=== PATIENT | male | born 1995 | race African-American/Black ===

== ENCOUNTER 2017-02-05 17:58 | Emergency (ER) | payer OTHER ==
[~2017-02-05 17:58] MED LIST: ACETAMINOPHEN PO; CLARITIN10 M2 PO; HUMALOG100 U/ML SUBQ; LANTUS100 U/ML SUBQ; VENTOLIN5 MG/ML IH
[2017-02-05 18:04] LABS: BASOPHIL% 0.3 % (0-2.5); HEMATOCRIT 45.2 % (38.0-50.0); HEMOGLOBIN 15.1 gm/dL (13.0-16.0); LYMPHOCYTE# 0.6 X10e3 (1.0-3.5); MEAN CELL VOLUME 77.8 FL (83-96); MEAN CORPUSCULAR HGB CONC 33.3 g/dL (30-36); MEAN PLATELET VOLUME 9.1 FL (6.5-11.5); MONOCYTE# 0.3 X10e3 (0-1.0); MONOCYTE% 4.4 % (3.0-12.0); NEUTROPHIL# 5.9 X10e3 (1.5-7.1); NEUTROPHIL% 86.3 % (40-75); PLATELET COUNT 235 X10e3 (140-420); RED CELL DISTRIBUTION WIDTH 13.7 % (11.0-15.5); WHITE BLOOD COUNT 6.8 X10e3 (4.0-10.5)
[2017-02-05 18:05] LABS: DIFF IND NO
[2017-02-05 18:22] LABS: URINE SOURCE CLEAN CATCH
[2017-02-05 18:23] LABS: INFLUENZA A NEG (NEG); INFLUENZA B NEG (NEG)
[2017-02-05 18:30] LABS: URINE APPEARANCE CLEAR; URINE BILIRUBIN NEG (NEG); URINE BLOOD NEG (NEG); URINE COLOR YELLOW; URINE GLUCOSE 500 MG/DL (NEG); URINE KETONE 1+ (NEG); URINE LEUKOCYTE ESTERASE NEG (NEG); URINE NITRATE NEG (NEG); URINE PROTEIN 2+ (NEG); URINE SPECIFIC GRAVITY 1.032 (1.003-1.035)
[2017-02-05 18:32] LABS: ALBUMIN SERUM 4.3 g/dL (3.5-5.0); ALKALINE PHOSPHATASE 69 U/L (32-92); ALT (SGPT) 21 U/L (10-40); AST (SGOT) 32 U/L (10-42); BETA HYDROXYBUTYRATE 0.39 MMOL/L (0.02-0.27); BILIRUBIN, DIRECT 0.1 mg/dL (0.0-0.2); BILIRUBIN,INDIRECT 0.5 mg/dL (0.0-0.9); BILIRUBIN,TOTAL 0.6 mg/dL (0.2-2.0); BLOOD UREA NITROGEN 11 mg/dL (9-23); BUN/CREATININE RATIO 12.22; CALCIUM SERUM 9.3 mg/dL (8.4-10.2); CARBON DIOXIDE 25 mmol/L (22-31); CHLORIDE 101 mmol/L (100-111); CREATININE SERUM 0.9 mg/dL (0.6-1.4); GLOM FILT RATE Estimated ABOVE60 mL/min (>60); GLUCOSE FASTING 214 mg/dL (70-110); POTASSIUM 3.7 mmol/L (3.5-5.1); PROTEIN TOTAL SERUM 7.9 g/dL (6.0-8.3); SODIUM 134 mmol/L (135-145)
[2017-02-05 18:33] LABS: URINE BACTERIA AUWI NEG (NEGATIVE); URINE SQUAMOUS EPITHELIAL CELL MOD /[HPF]; UWBCS1 AUWI 0-2 (0-5)
[2017-02-05 18:34] LABS: CULTURE INDICATED? NO
== END 2017-02-05 19:46 | disposition home or self-care (01) ==
LOC: CED 17:58
PROVIDERS: Emergency Medicine
DX: E10.65 Type 1 diabetes mellitus with hyperglycemia (principal)
CPT/HCPCS: 36415; 80048; 80076; 81003; 82010; 82947; 85025; 87804; 96361; 96374; 96375; 99284; J2405; J2550

== ENCOUNTER 2017-02-07 03:05 | Inpatient (IN) | payer OTHER ==
--- NOTE | ~2017-02-07 | NM19 ---
[facility] A Service of [facility] RADIOLOGY TEXT RESULTS PATIENT: LANEY HANSON LOCATION: A : [birth year] UNIT #: [id number] AGE: [address]: Alba Villafuerte MD SEX: M ORDER DR: [id number] [facility] [address] [facility] [address] [place], [place] [address] [id number] I MR#: [id number] Acc #: [id number] NAME: LANEY HANSON : 1995 SEX: M STUDY DATE/TIME: 02/08/2017 12:45 UNIT: [facility] ROOM: [facility] STUDY DESCRIPTION: NM Gastric Emptying Study Attending Physician: Alba Villafuerte M.D. Ordering Physician: Ramesh Mulligan M.D. Primary Care Physician: Primary Care Physician No MEDICAL IMAGING REPORT This report is preliminary unless electronic signature is present EXAM Gastric emptying scan, 02/08/2017 HISTORY Nausea and vomiting all day, alternating diarrhea and constipation, epigastric abdominal pain, symptoms began 4 days ago. FINDINGS The patient ingested 534 microcuries of technetium 99m tagged sulfur colloid in eggs. Images of the upper abdomen were obtained for 105 minutes. The gastric half-emptying time was calculated to be 96 minutes (normal is between 65 and 90 minutes). IMPRESSION Delayed gastric half-emptying time of 96 minutes. Dictated by... Carson Call M.D. THIS IS AN ELECTRONICALLY VERIFIED REPORT Carson Call M.D. at 02/09/2017 7:56 AM Marjorie TD: 02/09/2017 00:39 JOB #: [id number] MEDICAL IMAGING REPORT COPY
--- NOTE | ~2017-02-07 | HP ---
Unit #: [id number] #: [id number] Patient: LANEY COWART [id number] [address] [place], [place] [address] [id number] MR#: [id number] NAME: LANEY COWART ROOM: 09960 Age: 21 Sex: M Admission Date: 02/07/2017 : 1995 Attending Physician: Julia Herbert M.D. Primary Care Physician: No Primary Care Physician HISTORY AND PHYSICAL PRIMARY CARE PROVIDER Dr. Bradley CHIEF COMPLAINT Nausea, vomiting. HISTORY OF PRESENT ILLNESS Mr. Cowart is a nice 21-year-old -[place]an male with a history of diabetes who presents to the emergency department with nausea and vomiting. The patient states he began having abdominal prior to onset of nausea and vomiting approximately two to three days ago. The pain was present in the middle portion of the abdomen, both epigastric, umbilical and in the lower abdomen but didn't extend to the out portion of the quadrants. It is described as achy. The patient states with his first episode of emesis he noticed some bright red blood and since then has had some dark coffee ground type emesis. He denies any baseline heartburn and denies any similar symptoms in the past. This was associated with the onset of diarrhea but he did not look to see if he had any melena or hematochezia. He was seen yesterday in the emergency department, was not in DKA, had normal white blood cell count, was not febrile and sent home. Flu swab at that time was negative and urinalysis revealed only mild ketones. However, patient went home, still was unable to eat. Diarrhea has resolved but he is still having nausea and vomiting. Upon presentation here today, patient has mild DKA with an anion gap of 14 and a glucose of 232. He stated his sugars at home have been running in the 150 to 250 range. He does endorse some polydipsia and polyuria and some unquantified weight loss over the last two to three days. He is being admitted for mild DKA and hematemesis. PAST MEDICAL HISTORY 1. Diabetes mellitus type 1 diagnosed at age 3 to 4. Again, patient states his sugars at home have been running 150 to 250. He does have a prior history of DKA with last admission here in 2014. 2. Oppositional disorder per review of records in 2008 per [facility]. MEDICATIONS Home medications include: 1. Lantus 44 units at bedtime. 2. Humalog one unit for each 5 g of carbohydrate with meals. PAST SURGICAL HISTORY Negative. Unit #: [id number] #: [id number] Patient: LANEY COWART ALLERGIES No known drug allergies. FAMILY HISTORY Reportedly negative. SOCIAL HISTORY Patient does admit to marijuana use. He also smokes about two to three Black and Mild per day and has done so for the last five to ten years. REVIEW OF SYSTEMS He is having abdominal pain. Still having nausea with perhaps some coffee ground emesis. Denies any other chest pain. Denies any sore throat, denies any fevers, denies an sick contacts. He denies any difficulty urinating, dysuria or obvious hematuria. He denies any significant joint pain. Otherwise, ten point review of systems was reviewed and is negative. PHYSICAL EXAMINATION VITAL SIGNS: Temperature 97.7, blood pressure 141/86, pulse rate 47, respiratory rate 22. Oxygen saturation is normal on room air. GENERAL: The patient is awake, he is alert. He is oriented x3 but appears ill and uncomfortable. HEENT: Pupils equally round, reactive to light bilaterally. Anicteric sclerae. No conjunctival pallor. Oropharynx with dry mucous membranes. No erythema or exudate. NECK: Supple. No lymphadenopathy, no thyromegaly, no JVD. HEART: Regular rate and rhythm, currently without murmur, rub or gallop. LUNGS: Clear to auscultation bilaterally without wheezes, rhonchi or crackles. ABDOMEN: Currently soft. It is nontender, it is not distended. Positive bowel sounds. No appreciable hepatosplenomegaly. EXTREMITIES: No cyanosis, clubbing, or edema. Pedal pulses 2/4. SKIN: Warm, moist. It is without rash. Multiple tattoos noted over the chest and upper arms bilaterally. MUSCULOSKELETAL: No significant joint abnormalities noted. No erythema or malformation of joints. NEUROLOGICAL: Cranial nerves II-XII intact. Sensation, strength and deep tendon reflexes are grossly normal. PSYCHIATRIC: No suicidal or homicidal ideation. DIAGNOSTIC STUDIES LABORATORY: Lab work done earlier today reveals a sodium of 135, potassium 3.5, chloride 96, bicarb 25, BUN 12, creatinine 1.2, glucose of 232. Calculated anion gap mildly elevated at 14. LFTs are normal. Lipase is normal at 15. Beta hydroxybutyrate is very mildly elevated at 1.97. Alcohol is less than 5. CBC reveals a white blood cell count of 6.9, hemoglobin 15.9, platelet count of 261,000 with an MCV of 78. Venous blood gas reveals a pH of 7.52, pCO2 of 32, pO2 of 41. Urinalysis reveals 1+ protime, greater than 100 of glucose, 1+ blood and 5-10 RBCs. Unit #: [id number] #: [id number] Patient: LANEY COWART Urine drug screen is positive for marijuana. CARDIOVASCULAR: EKG done in the emergency department reveals normal sinus rhythm. There are no ST or T wave abnormalities. IMAGING: CT scan of the abdomen and pelvis was done given some microscopic hematuria and it reveals only free fluid in the pelvis. It is otherwise negative. ASSESSMENT 1. Mild diabetic ketoacidosis. 2. Hematemesis with stable hemoglobin. 3. Acute kidney injury, prerenal. 4. Microcytosis, question iron deficiency versus thalassemia versus other. 5. Microscopic hematuria. 6. Tobaccoism. 7. Marijuana use. PLAN 1. will admit patient to inpatient status on telemetry floor. 2. I am going to give 4 units of NovoLog subcutaneously now, otherwise obtain Accu-Cheks a.c. and h.s. and place patient on diabetic clear diet for now. I am going to decrease dose of Levemir to 20 units at bedtime for now until intake and diet have improved/advanced. 3. I am going to consult GI in regards to patient's hematemesis, place him on Protonix 40 mg IV b.i.d. and continue to follow serial hemoglobin. 4. Will recheck renal function later today with repeat BMP. I anticipate creatinine will improve. 5. Will check iron and TIBC level in regards to patient's microcytosis. 6. Can follow up microscopic hematuria as an outpatient. 7. DVT prophylaxis with SCDs. Dictated by Julia Herbert M.D. MARIA LUISA/johnny TD: 02/07/2017 07:27 JOB #: [id number] HISTORY AND PHYSICAL X Julia Herbert MD X HISTORY AND PHYSICAL
--- NOTE | ~2017-02-07 | CT4 ---
[facility] A Service of [facility] RADIOLOGY TEXT RESULTS PATIENT: LANEY HANSON LOCATION: [facility] 579-01 : [birth year] UNIT #: [id number] AGE: [address]: Alba Villafuerte MD SEX: M ORDER DR: [id number] [place] 0[address] [facility]. [place], [place] [address] [id number] I MR#: [id number] Acc #: [id number] NAME: LANEY HANSON : 1995 SEX: M STUDY DATE/TIME: 02/07/2017 4:13 UNIT: [facility] ROOM: 64013 STUDY DESCRIPTION: CT Abd and Pelv Wo Cont Attending Physician: Alba Villafuerte M.D. Ordering Physician: Daniella Dinh M.D. Primary Care Physician: Primary Care Physician No MEDICAL IMAGING REPORT This report is preliminary unless electronic signature is present EXAM CT abdomen and pelvis without contrast 02/07/2017 HISTORY 21-year-old male with complaints of nausea, vomiting and abdominal pain greatest in the epigastric region for 1 day. Diabetes. COMPARISON Acute abdominal series 04/14/2015. No prior CT abdomen and pelvis at this institution for comparison. TECHNIQUE This CT examination was performed with one or more of the following radiation dose reduction techniques: automatic exposure control, adjustment of mA and/or kV according to patient size, and iterative reconstruction. PROCEDURE 3 mm noncontrast axial images through the abdomen and pelvis. Enteric contrast was not administered. Sagittal and coronal reformatted images were obtained. FINDINGS ABDOMEN: The lung bases are free of consolidation. Noncontrast appearance of the liver, gallbladder, spleen, pancreas, adrenals and kidneys within normal limits. No urinary tract stone or hydronephrosis is seen. Appendix not visualized. Limited evaluation of bowel due to the paucity of intraabdominal fat, and the lack of IV and oral contrast. Bowel appears grossly unremarkable. PELVIS: Trace pelvic free fluid. Presumed phleboliths bilaterally in the pelvis. Urinary bladder, rectum normal. [facility] A Service of [facility] RADIOLOGY TEXT RESULTS PATIENT: LANEY HANSON LOCATION: [facility] 579-01 : [birth year] UNIT #: [id number] AGE: [address]: Alba Villafuerte MD SEX: M ORDER DR: No acute osseous abnormalities are seen. IMPRESSION 1. Trace pelvic free fluid is present. Otherwise, no acute findings are identified. Study is significantly limited due to lack of IV and oral contrast. 2. Appendix not visualized. Dictated by... Minnie Jimenez M.D. THIS IS AN ELECTRONICALLY VERIFIED REPORT Minnie Jimenez M.D. at 02/07/2017 10:02 PM Mini/bronwyn TD: 02/07/2017 08:31 JOB #: [id number] MEDICAL IMAGING REPORT COPY
--- NOTE | ~2017-02-07 | CR72 ---
[facility] A Service of [facility] RADIOLOGY TEXT RESULTS PATIENT: LANEY HANSON LOCATION: [facility] : [birth year] UNIT #: [id number] AGE: [address]: Alba Villafuerte MD SEX: M ORDER DR: [id number] [facility] [address]. [place], [place] [address] [id number] I MR#: [id number] Acc #: [id number] NAME: LANEY HANSON : 1995 SEX: M STUDY DATE/TIME: 02/07/2017 3:05 UNIT: [facility] ROOM: 42795 STUDY DESCRIPTION: CR Chest Single View Portable Attending Physician: Alba Villafuerte M.D. Ordering Physician: Daniella Dinh M.D. Primary Care Physician: Primary Care Physician No MEDICAL IMAGING REPORT This report is preliminary unless electronic signature is present EXAM AP portable chest 02/07/2017 03:05 HISTORY Epigastric pain with nausea and vomiting for 2 days. Diabetes. Smoking history. COMPARISON AP portable chest 04/13/2015 FINDINGS A single AP portable view of the chest shows both lungs to be clear. The heart is normal in size. The mediastinal contour is normal. No significant bone abnormalities are seen. IMPRESSION Normal portable chest. Dictated by... Minnie Jimenez M.D. THIS IS AN ELECTRONICALLY VERIFIED REPORT Minnie Jimenez M.D. at 02/07/2017 10:01 PM CECIL/alejandra TD: 02/07/2017 08:08 JOB #: [id number] MEDICAL IMAGING REPORT COPY
--- NOTE | ~2017-02-07 | OR ---
Unit #: [id number] #: [id number] Patient: LANEY HANSON [id number] [address] [address] [id number] I MR#: [id number] NAME: LANEY HANSON ROOM: 202 Date of Procedure: 02/08/2017 Admission Date: 02/07/2017 Surgeon: Jai Pierce M.D. : 1995 Attending Physician: Alba Villafuerte M.D. OPERATIVE REPORT PROCEDURES PERFORMED Esophagogastroduodenoscopy with biopsy. INDICATIONS FOR PROCEDURE The patient presented with persistent nausea and vomiting, undergoing evaluation with upper endoscopy. MEDICATIONS Monitored anesthesia. POSTOPERATIVE FINDINGS 1. Moderate grade 3 esophagitis. 2. Hiatal hernia. 3. Chronic appearing gastritis, biopsies taken. 4. Normal duodenum and distal duodenum. PLAN Continue aggressive PPI therapy and reflux precautions. Follow up on the pathology report. The patient is still on low residue diet. The gastric emptying scan to be planned. DESCRIPTION OF PROCEDURE The patient was explained of the procedure, risks, and benefits along with risks and benefits of anesthesia. He was brought to the endoscopy room. Propofol anesthesia was given. Bite block was placed. The scope was passed down the mouth into the esophagus, stomach, duodenum, and distal duodenum. Findings as described. Biopsies taken. Gently, I pulled the scope out of the patient's mouth. He tolerated it well. Dictated by... Choco Fernandez/lui TD: 03/11/2017 01:48 JOB #: [id number] Unit #: [id number] #: [id number] Patient: LANEY HANSON OPERATIVE REPORT Page 1 of 1 X Jai Pierce MD PROCEDURE OPERATIVE NOTE
--- NOTE | ~2017-02-07 | EKG ---
PATIENT: LANEY HANSON UNIT #: [id number] Ventricular Rate: 82 BPM Atrial Rate: 82 BPM P-R Interval: 160 ms QRS Duration: 100 ms Q-T Interval: 376 ms QTC Calculation(Bezet): 439 ms P [place]: 66 degrees Calculated R [place]: 96 degrees Calculated T [place]: 61 degrees Diagnosis Line: Normal sinus rhythm with sinus arrhythmia Diagnosis Line: Rightward axis Diagnosis Line: Borderline ECG Diagnosis Line: No previous ECGs available Diagnosis Line: Confirmed by ANA LILIA FITCH MD ([id number]) on Diagnosis Line: 02/07/2017 3:27:12 PM INTERPRETING MD: CONSTANTINE LEWIS
--- NOTE | ~2017-02-07 | CO ---
Unit #: [id number] #: [id number] Patient: LANEY HANSON [id number] [address] [place], [place] [address] [id number] I MR#: [id number] NAME: LANEY HANSON ROOM: 579 Age: 21 Sex: M Admission Date: 02/07/2017 : 1995 Attending Physician: Alba Villafuerte M.D. Primary Care Physician: No Primary Care Physician CONSULTATION REPORT REASON FOR CONSULTATION Hematemesis. HISTORY OF PRESENT ILLNESS The patient is a pleasant 21-year-old -[place]ish male with a history of diabetes, who presented to the ER with history of nausea and vomiting, possible hematemesis. He actually states that he originally came to the ER on Tuesday, was sent home with some antiemetics and then returned yesterday without any significant improvement. He does report some epigastric pain which he states is somewhat improved at this time. Upon workup in the ER, he was found to have mild DKA with an anion gap of 14 and initial glucose of 232. PAST MEDICAL HISTORY 1. Diabetes type 2. 2. Oppositional disorder. HOME MEDICATIONS 1. Lantus. 2. Humalog. PAST SURGICAL HISTORY None. ALLERGIES None known. FAMILY HISTORY Reviewed and noncontributory. SOCIAL HISTORY The patient does admit marijuana use. Does smoke two to three Black and Mild daily. Denies alcohol. REVIEW OF SYSTEMS A complete 10-point review of systems was completed and negative except as mentioned in the HPI. PHYSICAL EXAMINATION GENERAL: The patient is a pleasant 21-year-old -Scottish male currently in no acute distress. VITAL SIGNS: Temperature 98.1, pulse 75, respirations 18, blood pressure 155/110. HEENT: PERRLA. Unit #: [id number] #: [id number] Patient: LANEY HANSON NECK: Supple. CARDIAC: S1, S2. LUNGS: Clear to auscultation. ABDOMEN: Mild epigastric tenderness, otherwise negative abdomen. Positive bowel sounds. NEUROLOGIC: The patient is alert and oriented x3. DIAGNOSTIC STUDIES LABORATORY: Glucose this morning was 229. Chemistries otherwise negative. White count 6.9, hemoglobin 15.9, hematocrit 47.9, platelets 261,000. IMAGING: CT abdomen and pelvis without contrast was completed. It was negative but for some trace pelvic free fluid. ASSESSMENT AND PLAN 1. Persistent nausea and vomiting with hematemesis: Will plan esophagogastroduodenoscopy for the morning. Continue to monitor hemoglobin and hematocrit. Transfuse if needed. Continue proton pump inhibitor for now. Further recommendations to follow esophagogastroduodenoscopy. 2. Diabetic ketoacidosis: Mild, per primary team. Thank you for this interesting consult. We will continue to follow along. Dictated by... Julia Moran A.P.R.N. for Jai Pierce M.D. MARIBEL/alphonso TD: 02/07/2017 12:59 JOB #: [id number] CONSULTATION REPORT X X CONSULTATION REPORT
--- NOTE | ~2017-02-07 | DS ---
Unit #: [id number] #: [id number] Patient: LANEY HANSON [id number] [address] [place], [place] [address] [id number] MR#: [id number] NAME: LANEY HANSON ROOM: 202 Age: 21 Sex: M Admission Date: 02/07/2017 : 1995 Discharge Date: 02/09/2017 Attending Physician: Alba Villafuerte M.D. Primary Care Physician: Primary Care Physician No DISCHARGE SUMMARY PRIMARY CARE PHYSICIAN DISCHARGE DIAGNOSES 1. Type 1 diabetes with gastroparesis. 2. Hematemesis, status post upper esophagogastroduodenoscopy with findings of gastritis. No source of bleeding was seen. 3. Marijuana-induced hyperemesis. 4. Resolved acute kidney injury. 5. Microscopic hematuria. The patient follows as outpatient with his primary care physician to ensure clearance of the microscopic hematuria as this may have been due to catheter injury. SECRETARY [employer]IONERS Dr. Pierce, Gastroenterology. PROCEDURES An EGD done on 02/09/2017 with findings of gastritis and no extra source of bleeding. DIAGNOSTIC STUDIES IMAGING STUDIES: Consist of gastric emptying study, impression delayed gastric emptying a time of 96 minutes, that was done on February 08 and on February 07 he had a chest x-ray, impression, normal portable chest x-ray. CT of abdomen and pelvis, impression, trace pelvic free fluid is present otherwise. No acute findings identified. Study is significantly limited due to lack of IV and oral contrast, appendix is not well visualized. LABORATORY RESULTS: On the day of discharge, the patient's labs include BMP, glucose of 212, BUN 12, creatinine 0.8, sodium 132, potassium 3.9, chloride 99, CO2 of 26, calcium 8.9, phosphorus 4.4, magnesium 2.0, total protein 6.7, albumin 3.6, total bilirubin 2.1, AST 18, ALT 17, alkaline phosphatase 51. The patient's A1c when assessed was 12.1. CBC with WBC 5.4, RBC 5.78, hemoglobin 14.7, hematocrit 45.1, MCV 78.1, MCH 25.5, MCHC 32.7, RDW 12.9, platelets 256, MPV is 10.0. The patient's drug screen is positive for marijuana. Urinalysis have revealed presence of protein and much glucose. There was also microscopic hematuria. HOSPITAL COURSE The patient is a 21-year-old male with past medical history of diabetes, who presents to the emergency department due to nausea and vomiting. The patient states that he had been having abdominal pain, positive onset of nausea and vomiting approximately 2 to 3 days ago. Unit #: [id number] #: [id number] Patient: LANEY HANSON The pain was present in the midportion of the abdomen both epigastric, umbilical, and in the lower abdomen, the patient states that with his first episode of emesis, he noticed some bright red blood and since then he has had some dark coffee-ground emesis. He denied any baseline heartburn symptoms. He has had similar symptoms in the past. He had associated onset of diarrhea, but did not melena or hematochezia. The day prior to admission, he was seen in the emergency department, but did not have acidosis, had a normal white count, was afebrile, and sent home. Flu swab at that time was negative. Urinalysis did reveal mild ketones, however, the patient was at home, was still unable to eat, although the diarrhea had resolved. He was still having vomiting and nausea. He presents to the emergency departments on the day of admission with mild DKA with anion gap of 14, glucose of 232. He states sugars at home run around 150 to 250. He also has polydipsia and polyuria symptoms and known amount of weight loss in the past 2 to 3 days, who was admitted for blood sugar as well as hematemesis. The patient was kept n.p.o. the following night and reassessed his nausea and vomiting with a diabetic patient with gastric emptying study that did reveal that he has delayed emptying time and the following morning, the patient had an upper EGD done by Dr. Trevino of Gastroenterology who did see much gastritis, but no active signs of bleeding. At this time, the patient's hemoglobin and hematocrit are stable at 14.7 and 45.1. His nausea and vomiting have resolved. The patient is stable to be discharged home. DISCHARGE CONDITION Stable. FOLLOWUP Follow up with primary care physician within 1 to 2 weeks. DISCHARGE ACTIVITIES Resume activity as prior to hospitalization needing every day. DIET Heart healthy diet as well as compliant with [place] [employer], consistent carb diet. MEDICATIONS Include Lantus 20 units subcutaneous at bedtime, NovoLog. The patient uses low dose sliding scale. NovoLog and glucometer prescriptions were given, Protonix 40 mg orally daily for the gastritis, Reglan 10 mg orally prior to meals and at bedtime to take for 2 weeks for the gastroparesis. I did talk to the patient at length about the effects of marijuana and hyperemesis. The patient tells me that he only smoked once for his brother's birthday last week. The patient seems to be less accepting that this could be contributing to his nausea and vomiting. Dictated by... Valentín Shipley PA-C for Choco Resendiz/lui TD: 02/10/2017 23:27 JOB #: [id number] Unit #: [id number] #: [id number] Patient: LANEY HANSON DISCHARGE SUMMARY X X DISCHARGE SUMMARY
[2017-02-07 02:54] LABS: ARTERIAL BLD GAS O2 SATURATION 81.4 % (90.0-100.0); ARTERIAL BLOOD GAS CARBOXY HB 1.9 %sat (0.0-9.0); ARTERIAL BLOOD GAS HCO3 26.5 mmol/L; ARTERIAL BLOOD GAS MET HB 0.8 %sat (0.0-2.0); ARTERIAL BLOOD GAS PCO2 32.1 mmHg (35.0-45.0); ARTERIAL BLOOD GAS pH 7.526 (7.350-7.450)
[2017-02-07 02:55] LABS: ARTERIAL BLOOD GAS PO2 41.2 mmHg (80.0-100); ARTERIAL DRAW? NO
[2017-02-07 03:09] LABS: BASOPHIL# 0.1 X10e3 (0-0.3); BASOPHIL% 0.7 % (0-2.5); EOSINOPHIL% 0.1 % (0.0-7.0); HEMATOCRIT 47.9 % (38.0-50.0); HEMOGLOBIN 15.9 gm/dL (13.0-16.0); LYMPHOCYTE# 1.4 X10e3 (1.0-3.5); LYMPHOCYTE% 19.9 % (17.0-45.0); MEAN CELL VOLUME 77.4 FL (83-96); MEAN CORPUSCULAR HEMOGLOBIN 25.7 PG (28-34); MEAN CORPUSCULAR HGB CONC 33.2 g/dL (30-36); MEAN PLATELET VOLUME 9.8 FL (6.5-11.5); MONOCYTE# 0.5 X10e3 (0-1.0); MONOCYTE% 7.6 % (3.0-12.0); NEUTROPHIL# 4.9 X10e3 (1.5-7.1); NEUTROPHIL% 71.7 % (40-75); PLATELET COUNT 261 X10e3 (140-420); RED BLOOD COUNT 6.18 X10e (3.90-5.60); RED CELL DISTRIBUTION WIDTH 13.4 % (11.0-15.5); WHITE BLOOD COUNT 6.9 X10e3 (4.0-10.5)
[2017-02-07 03:13] LABS: DIFF IND NO
[2017-02-07 03:16] LABS: URINE SOURCE CLEAN CATCH
[2017-02-07 03:18] LABS: POC - TROPONIN <0.05 ng/mL (<=0.05)
[2017-02-07 03:19] LABS: URINE APPEARANCE CLEAR; URINE BILIRUBIN NEG (NEG); URINE BLOOD 1+ (NEG); URINE COLOR YELLOW; URINE GLUCOSE >1000 MG/DL (NEG); URINE KETONE 3+ (NEG); URINE LEUKOCYTE ESTERASE NEG (NEG); URINE NITRATE NEG (NEG); URINE PROTEIN 1+ (NEG); URINE SPECIFIC GRAVITY 1.038 (1.003-1.035)
[2017-02-07 03:22] LABS: URINE BACTERIA AUWI NEG (NEGATIVE); URINE SQUAMOUS EPITHELIAL CELL NONE SEEN /[HPF]
[2017-02-07 03:31] LABS: AMPHETAMINE NEG (NEG); BARBITURATES NEG (NEG); BENZODIAZEPINES NEG (NEG); COCAINE NEG (NEG); MARIJUANA POS (NEG); OPIATES NEG (NEG); TRICYCLIC ANTIDEPRESSANTS NEG (NEG); U METHADONE NEG (NEG)
[2017-02-07 03:36] LABS: CULTURE INDICATED? NO
[2017-02-07 03:37] LABS: ALBUMIN SERUM 4.7 g/dL (3.5-5.0); ALKALINE PHOSPHATASE 66 U/L (32-92); ALT (SGPT) 23 U/L (10-40); AMYLASE 17 U/L (0-46); AST (SGOT) 33 U/L (10-42); BETA HYDROXYBUTYRATE 1.97 MMOL/L (0.02-0.27); BILIRUBIN, DIRECT 0.1 mg/dL (0.0-0.2); BILIRUBIN,INDIRECT 0.9 mg/dL (0.0-0.9); BLOOD UREA NITROGEN 12 mg/dL (9-23); CALCIUM SERUM 9.7 mg/dL (8.4-10.2); CARBON DIOXIDE 25 mmol/L (22-31); CHLORIDE 96 mmol/L (100-111); CREATININE SERUM 1.2 mg/dL (0.6-1.4); GLOM FILT RATE Estimated ABOVE60 mL/min (>60); GLUCOSE FASTING 232 mg/dL (70-110); LIPASE 15 U/L (22-51); POTASSIUM 3.5 mmol/L (3.5-5.1); PROTEIN TOTAL SERUM 8.3 g/dL (6.0-8.3); SODIUM 135 mmol/L (135-145)
[2017-02-07 03:38] LABS: ALCOHOL BLOOD <5 mg/dL (0)
[2017-02-07 07:05] LABS: BLOOD UREA NITROGEN 12 mg/dL (9-23); CALCIUM SERUM 8.8 mg/dL (8.4-10.2); CARBON DIOXIDE 26 mmol/L (22-31); CHLORIDE 99 mmol/L (100-111); GLOM FILT RATE Estimated ABOVE60 mL/min (>60); GLUCOSE FASTING 229 mg/dL (70-110); POTASSIUM 3.8 mmol/L (3.5-5.1); SODIUM 136 mmol/L (135-145)
[2017-02-07 07:21] LABS: MAGNESIUM 1.8 mg/dL (1.6-3.0); PHOSPHOROUS 4.4 mg/dL (2.5-4.6)
[2017-02-07 14:25] LABS: BASOPHIL% 0.5 % (0-2.5); HEMATOCRIT 46.1 % (38.0-50.0); HEMOGLOBIN 14.9 gm/dL (13.0-16.0); LYMPHOCYTE# 1.6 X10e3 (1.0-3.5); LYMPHOCYTE% 25.2 % (17.0-45.0); MEAN CORPUSCULAR HEMOGLOBIN 25.5 PG (28-34); MEAN CORPUSCULAR HGB CONC 32.3 g/dL (30-36); MEAN PLATELET VOLUME 9.9 FL (6.5-11.5); MONOCYTE# 0.6 X10e3 (0-1.0); NEUTROPHIL# 4.3 X10e3 (1.5-7.1); NEUTROPHIL% 65.3 % (40-75); PLATELET COUNT 234 X10e3 (140-420); RED BLOOD COUNT 5.84 X10e (3.90-5.60); RED CELL DISTRIBUTION WIDTH 13.5 % (11.0-15.5); WHITE BLOOD COUNT 6.5 X10e3 (4.0-10.5)
[2017-02-07 14:26] LABS: DIFF IND NO
[2017-02-07 14:33] LABS: BLOOD UREA NITROGEN 12 mg/dL (9-23); BUN/CREATININE RATIO 13.33; CALCIUM SERUM 8.9 mg/dL (8.4-10.2); CARBON DIOXIDE 25 mmol/L (22-31); CHLORIDE 100 mmol/L (100-111); CREATININE SERUM 0.9 mg/dL (0.6-1.4); GLOM FILT RATE Estimated ABOVE60 mL/min (>60); GLUCOSE FASTING 246 mg/dL (70-110); POTASSIUM 4.1 mmol/L (3.5-5.1); SODIUM 135 mmol/L (135-145)
[2017-02-08 05:46] LABS: HEMATOCRIT 46.6 % (38.0-50.0); HEMOGLOBIN 15.4 gm/dL (13.0-16.0); MEAN CELL VOLUME 79.2 FL (83-96); MEAN CORPUSCULAR HEMOGLOBIN 26.1 PG (28-34); MEAN PLATELET VOLUME 9.1 FL (6.5-11.5); RED BLOOD COUNT 5.88 X10e (3.90-5.60); RED CELL DISTRIBUTION WIDTH 13.4 % (11.0-15.5); WHITE BLOOD COUNT 5.9 X10e3 (4.0-10.5)
[2017-02-08 06:47] LABS: ALBUMIN SERUM 3.7 g/dL (3.5-5.0); ALKALINE PHOSPHATASE 58 U/L (32-92); ALT (SGPT) 19 U/L (10-40); AST (SGOT) 25 U/L (10-42); BILIRUBIN,TOTAL 1.2 mg/dL (0.2-2.0); BLOOD UREA NITROGEN 11 mg/dL (9-23); CALCIUM SERUM 9.2 mg/dL (8.4-10.2); CARBON DIOXIDE 26 mmol/L (22-31); CHLORIDE 100 mmol/L (100-111); GLOM FILT RATE Estimated ABOVE60 mL/min (>60); GLUCOSE FASTING 147 mg/dL (70-110); MAGNESIUM 1.9 mg/dL (1.6-3.0); POTASSIUM 4.3 mmol/L (3.5-5.1); PROTEIN TOTAL SERUM 6.8 g/dL (6.0-8.3); SODIUM 135 mmol/L (135-145)
[2017-02-08] MEDS ORDERED: NOVOLOG100 U/M2 SUBQ (19:28)
[2017-02-08] MEDS ORDERED: LANTUS100 U/ML SUBQ (19:30)
[2017-02-09 06:35] LABS: HEMATOCRIT 45.1 % (38.0-50.0); HEMOGLOBIN 14.7 gm/dL (13.0-16.0); MEAN CELL VOLUME 78.1 FL (83-96); MEAN CORPUSCULAR HEMOGLOBIN 25.5 PG (28-34); MEAN CORPUSCULAR HGB CONC 32.7 g/dL (30-36); RED BLOOD COUNT 5.78 X10e (3.90-5.60); RED CELL DISTRIBUTION WIDTH 12.9 % (11.0-15.5); WHITE BLOOD COUNT 5.4 X10e3 (4.0-10.5)
[2017-02-09 07:05] LABS: ALBUMIN SERUM 3.6 g/dL (3.5-5.0); ALKALINE PHOSPHATASE 51 U/L (32-92); ALT (SGPT) 17 U/L (10-40); AST (SGOT) 18 U/L (10-42); BILIRUBIN,TOTAL 0.9 mg/dL (0.2-2.0); BLOOD UREA NITROGEN 12 mg/dL (9-23); CALCIUM SERUM 8.9 mg/dL (8.4-10.2); CARBON DIOXIDE 26 mmol/L (22-31); CHLORIDE 99 mmol/L (100-111); CREATININE SERUM 0.8 mg/dL (0.6-1.4); GLOM FILT RATE Estimated ABOVE60 mL/min (>60); GLUCOSE FASTING 216 mg/dL (70-110); POTASSIUM 3.9 mmol/L (3.5-5.1); PROTEIN TOTAL SERUM 6.7 g/dL (6.0-8.3); SODIUM 132 mmol/L (135-145)
[2017-02-09] MEDS ORDERED: PROTONIX PO (13:05)
[2017-02-09] MEDS ORDERED: NOVOLOG100 U/M2 (13:08)
[2017-02-09] MEDS ORDERED: REGLAN10 MG PO (13:09)
[2017-02-09] MEDS ORDERED: LANTUS100 U/ML SUBQ (13:09)
== END 2017-02-09 13:20 | disposition home or self-care (01) | DRG 377 ==
LOC: CED 03:05 → CEDOF 05:00 → C5C 09:39 → C2A 02-08 14:47
PROVIDERS: Internal Medicine; Physician Assistant Medical; Student in an Organized Health Care Education/Training Program
PROC: 0DJ08ZZ Inspection of Upper Intestinal Tract, Via Natural or Artificial Opening Endoscopic (ICD-10-PCS; principal; 2017-02-09 10:05)
DX: K92.0 Hematemesis (principal); E10.10 Type 1 diabetes mellitus with ketoacidosis without coma; N17.9 Acute kidney failure, unspecified; E10.43 Type 1 diabetes mellitus with diabetic autonomic (poly)neuropathy; K31.84 Gastroparesis; Z79.4 Long term (current) use of insulin; F12.10 Cannabis abuse, uncomplicated; R31.9 Hematuria, unspecified; F17.210 Nicotine dependence, cigarettes, uncomplicated; K29.70 Gastritis, unspecified, without bleeding
CPT/HCPCS: 36415; 71010; 74176; 78264; 80048; 80053; 80076; 80307; 81003; 82010; 82150; 82553; 82803; 82947; 83036; 83540; 83550; 83690; 83735; 84100; 84484; 85025; 85027; 88305; 88312; 93005; 94760; 96361; 96374; 96375; 99285; A9541; C9113; G0480; J1815; J2270; J2405; J2550